=== PATIENT | female | born 1985 | race Two or more races ===

== ENCOUNTER 2023-08-21 14:56 | Emergency (ER) | payer OTHER ==
[~2023-08-21] VITALS: Ht 152.4 cm; Wt 53.5 kg
[2023-08-21] MEDS ORDERED: LIDOCAINE VISCOUS 2% UD 15 ML UDC ONE (16:07)
[2023-08-21] MEDS ORDERED: FAMOTIDINE (20 MG) 20 MG TABLET ONE (16:07)
[2023-08-21] MEDS ORDERED: diphenhydrAMINE HCL 50 MG CAPSULE ONE (16:07)
[2023-08-21] MEDS: FAMOTIDINE (20 MG) 20 MG TABLET PO ONE (16:09)
[2023-08-21] MEDS: diphenhydrAMINE HCL 25 MG CAPSULE PO ONE (16:10)
[2023-08-21] MEDS: LIDOCAINE VISCOUS 2% UD 15 ML UDC MM ONE (16:11)
[2023-08-21] MEDS ORDERED: FAMO20TA80 PO (16:34)
[2023-08-21] MEDS ORDERED: EPIN0.3P3 IM (16:34)
[2023-08-21] MEDS ORDERED: DIPH25TA25 PO (16:34)
[2023-08-21 16:40] VITALS: BP 120/79; TEMP 98.2; O2SAT 99
== END 2023-08-21 16:39 | disposition home or self-care (01) ==
LOC: ER 15:00
DX: T78.40XA Allergy, unspecified, initial encounter (principal); X58.XXXA Exposure to other specified factors, initial encounter
CPT/HCPCS: 99283; Q0163